=== PATIENT | female | born 1965 | race African-American/Black ===

== ENCOUNTER 2019-02-05 08:34 | Inpatient (IN) | payer OTHER ==
--- NOTE | 2019-02-05 09:03 | HP ---
<JonasLingcarmen - Last Filed: 02/05/19 09:02> CIWA Score - Admission Criteria OASAS Guidelines: Admission for Medically Managed Detox: Requires at least one of the followin. CIWA greater than 12 2. Seizures within the past 24 hours 3. Delirium tremens within the past 24 hours 4. Hallucinations within the past 24 hours 5. Acute intervention needed for co occurring medical disorder 6. Acute intervention needed for co occurring psychiatric disorder 7. Severe withdrawal that cannot be handled at a lower level of care (continued vomiting, continued diarrhea, abnormal vital signs) requiring intravenous medication and/or fluids 8. Admission ROS [facility] Allergies/Adverse Reactions: Allergies Allergy/AdvReac Type Severity Reaction Status Date / Time No Known Allergies Allergy Unverified 02/05/19 08:54 - Ebola screening Have you traveled outside of the country in the last 21 days: No Have you had contact with anyone from an Ebola affected area: No Do you have a fever: No Patient History - Patient Medical History Hx Anemia: No Hx Asthma: Yes Hx Chronic Obstructive Pulmonary Disease (COPD): No Hx Cancer: No Hx Cardiac Disorders: No Hx Congestive Heart Failure: No Hx Hypertension: No Hx Hypercholesterolemia: No Hx Pacemaker: No HX Cerebrovascular Accident: No Hx Seizures: No Hx Dementia: No Hx Diabetes: Yes Hx Gastrointestinal Disorders: No Hx Liver Disease: No Hx Genitourinary Disorders: No Hx Sexually Transmitted Disorders: No (syphillis) Hx Renal Disease (ESRD): No Hx Thyroid Disease: No Hx Human Immunodeficiency Virus (HIV): No Hx Hepatitis C: Yes Hx Depression: Yes Hx Suicide Attempt: No Hx Bipolar Disorder: No Hx Schizophrenia: No - Patient Surgical History Past Surgical History: Yes Hx Neurologic Surgery: No Hx Cataract Extraction: No Hx Cardiac Surgery: No Hx Lung Surgery: No Hx Breast Surgery: No Hx Breast Biopsy: No Hx Abdominal Surgery: No Hx Appendectomy: No Hx Cholecystectomy: No Hx Genitourinary Surgery: No Hx Section: Yes (x 1,32 years ago) Hx Orthopedic Surgery: No Anesthesia Reaction: No - PPD History Date: 12/14/11 - Reproductive History Last Menstrual Period: 07/05/12 - Smoking Cessation Smoking history: Current every day smoker Have you smoked in the past 12 months: Yes Aproximately how many cigarettes per day: 20 Hx Chewing Tobacco Use: No - Substances abused Alcohol Substance route: Oral Frequency: Daily Amount used: 40oz - 2can / 1 pt vodka Age of first use: 15 Date of last use: 02/05/19 Crack Substance route: Smoking Frequency: Daily Amount used: $50 Age of first use: 15 Date of last use: 02/05/19 Admission Physical Exam [facility] - Vital Signs Vital Signs: Vital Signs - 24 hr 02/05/19 08:41 Pulse Rate 59 L Respiratory 19 Rate Blood Pressure 149/91 <Yobani Gregorio - Last Filed: 02/05/19 10:12> CIWA Score Nausea/Vomitin Muscle Tremors: 1-None Visible, but Bailey Anxiety: 1-Mildly Anxious Agitation: 1-Slight > Activity Paroxysmal Sweats: 3 Orientation: 0-Oriented Tacttile Disturbances: 1-Very Mild Itch/Numbness Auditory Disturbances: 1-Very Mild Visual Disturbances: 1-Very Mild Sensitivity Headache: 2-Mild (appropriate for admission) CIWA-Ar Total Score: 13 - Admission Criteria OASAS Guidelines: Admission for Medically Managed Detox: Requires at least one of the followin. CIWA greater than 12 2. Seizures within the past 24 hours 3. Delirium tremens within the past 24 hours 4. Hallucinations within the past 24 hours 5. Acute intervention needed for co occurring medical disorder 6. Acute intervention needed for co occurring psychiatric disorder 7. Severe withdrawal that cannot be handled at a lower level of care (continued vomiting, continued diarrhea, abnormal vital signs) requiring intravenous medication and/or fluids 8. Admission ROS S - HPI Chief Complaint: " I want to come in for alcohol detox. I failed again" History of Present Illness: Patient is a 53 year old black female with history of alcohol dependence last admitted here in 07/08/12 for detox for alcohol. She is currently drinking 1 pint of vodka per day and 40 oz of beer, six pack per day, she last drank on Tuesday. She also admits to using crack at about $ 100 per day and last used on Tuesday. Family Hx is significant for alcoholism on both father and mother's side. She also has 2 brother that use substances and one has Diabetes and the other has history of lung cancer. She is a mother of 2 girls and 1 boy. She is domiciled. Psych Hx is sifnificant for depression on trazodone. Her PMHx: She has asthma and is on proventil only. Diabetes in history and HCV but untreated. She has no allergies Prior Surgical history is for C/sx1 and TL in 1190. She has no pending legal issues. Exam Limitations: No Limitations - Ebola screening Have you traveled outside of the country in the last 21 days: No Do you have a fever: No - Review of Systems Constitutional: Chills, Diaphoresis, Loss of Appetite Respiratory: reports: No Symptoms reported Cardiac: reports: No Symptoms Reported GI: reports: Abdominal Distended, Diarrhea, Nausea, Poor Appetite : reports: No Symptoms Reported Musculoskeletal: reports: Muscle Pain Integumentary: reports: Dryness Neuro: reports: Headache Endocrine: reports: No Symptoms Reported Hematology: reports: No Symptoms Reported Psychiatric: reports: No Sypmtoms Reported, Judgement Intact, Mood/Affect Appropiate, Orientated x3 Other Systems: Reviewed and Negative Patient History - Patient Medical History Hx Anemia: No Hx Asthma: Yes Hx Chronic Obstructive Pulmonary Disease (COPD): No Hx Cancer: No Hx Cardiac Disorders: No Hx Congestive Heart Failure: No Hx Hypertension: No Hx Hypercholesterolemia: No Hx Pacemaker: No HX Cerebrovascular Accident: No Hx Seizures: No Hx Dementia: No Hx Diabetes: Yes Hx Gastrointestinal Disorders: No Hx Liver Disease: No Hx Genitourinary Disorders: No Hx Sexually Transmitted Disorders: No Hx Renal Disease (ESRD): No Hx Thyroid Disease: No Hx Human Immunodeficiency Virus (HIV): No Hx Hepatitis C: Yes Hx Depression: Yes - PPD History Previous Implant?: Yes Documented Results: Negative w/o proof Implanted On Prior [facility] Admission?: Yes PPD to be Administered?: No - Reproductive History Patient is a Female of Child Bearing Age (11 -55 yrs old): No - Smoking Cessation Have you smoked in the past 12 months: Yes Hx Chewing Tobacco Use: No Initiated information on smoking cessation: Yes 'Breaking Loose' booklet given: 02/05/19 - Substance & Tx. History Hx Alcohol Use: Yes (1 pint per day and beers also) Hx Substance Use: Yes Substance Use Type: Cocaine - Substances abused Crack Substance route: Smoking Frequency: Daily Family Disease History - Family Disease History Family Disease History: Other: Father (alcoholic), Mother (alcoholic), Brother ( alcoholic and DM and one with Lung CA) Admission Physical Exam [facility] - Vital Signs Vital Signs: Vital Signs - 24 hr 02/05/19 02/05/19 08:41 09:18 Temperature 98.2 F 98.2 F Pulse Rate 59 L 59 L Respiratory 19 19 Rate Blood Pressure 149/91 149/91 - Physical General Appearance: Yes: No Apparent Distress, Disheveled, Mild Distress, Moderate Distress HEENTM: Yes: EOMI, Hearing grossly Normal, Normal ENT Inspection, Normocephalic , MARCELINO, Pharynx Normal Respiratory: Yes: Chest Non-Tender, Lungs Clear, Normal Breath Sounds, No Respiratory Distress, No Accessory Muscle Use Neck: Yes: No masses,lesions,Nodules, Trachea in good position Breast: Yes: Breast Exam Deferred Cardiology: Yes: Regular Rhythm, Regular Rate, S1, S2 Abdominal: Yes: Normal Bowel Sounds, Non Tender, Distended Genitourinary: Yes: Within Normal Limits Back: Yes: Normal Inspection Musculoskeletal: Yes: full range of Motion, Gait Steady Extremities: Yes: Normal Capillary Refill, Normal Inspection, Normal Range of Motion, Non-Tender Neurological: Yes: ham stripper II-XII NML intact, Fully Oriented, Alert, Motor Strength 5/5, Normal Mood/Affect, Normal Response Integumentary: Yes: Dry Lymphatic: Yes: Within Normal Limits Cleared for Admission S - Detox or Rehab [facility] Level of Care: Medically Managed Detox Regimen/Protocol: Librium Claeared for Rehab Admission: No Screened but not Admitted - Documentation of Visit Screened but not Admitted: No Breathalyzer - Breathalyzer Breathalyzer: 0 (patient last drank tuesday morning) Vital Signs - Vital Signs Vital signs refused: No Temperature: 98.2 F Temperature source: Oral Pulse Rate: 59 Respiratory Rate: 19 Blood Pressure: 149/91 BP Location: Right Arm Blood Pressure position: Sitting - Height Height: 4 ft 9 in - Weight Weight: 98 lb Weight measurement method: Standing scale - BMI Body Mass Index (BMI): 21.2 - Bowel Function Bowel Movement: Yes (diarrhea) Urine Drug Screen - Control Is test valid?: Yes - Results Drug screen NEGATIVE: No Urine drug screen results: THC-Marijuana, CELENA-Cocaine Inpatient Rehab Admission - Rehab Decision to Admit Inpatient rehab admission?: No
[2019-02-05 09:04] VITALS: BMI 21.2
[2019-02-05] MEDS ORDERED: BISMUTH SUBSALICYLATE 262 MG/15 ML BTL PO PRN (10:14)
[2019-02-05] MEDS ORDERED: IBUPROFEN 400 MG TABLET (FP) PO PRN (10:14)
[2019-02-05] MEDS ORDERED: MENTHOL/PHENOL 1 EACH UD MM PRN (10:14)
[2019-02-05] MEDS ORDERED: METHOCARBAMOL 500 MG TABLET PO PRN (10:14)
[2019-02-05] MEDS ORDERED: MELATONIN 5 MG TABLETS PO PRN (10:14)
[2019-02-05] MEDS ORDERED: MAGNESIUM CITRATE 300 ML BOTTLE PO PRN (10:14)
[2019-02-05] MEDS ORDERED: MAG HYDROX/AL HYDROX/SIMETH 30 ML UNIT-DOSE CUP PO PRN (10:14)
[2019-02-05] MEDS ORDERED: MAGNESIUM HYDROX 2400MG/30ML ORAL SUSPENSION 30 ML CUP PO PRN (10:14)
[2019-02-05] MEDS ORDERED: chlordiazePOXIDE HCL 10 MG CAPSULE PO PRN (10:14)
[2019-02-05] MEDS ORDERED: hydrOXYzine HCL 25 MG TABLET (FP) PO PRN (10:14)
[2019-02-05] MEDS ORDERED: ACETAMINOPHEN 325 MG TABLET (FP) PO PRN ×2 (10:14)
[2019-02-05] MEDS ORDERED: ALBUTEROL SO4 8 GM HFA INHALER IH PRN (10:18)
[2019-02-05] MEDS: chlordiazePOXIDE HCL 25 MG CAPSULE PO SCH ×2 (12:25→22:31)
--- NOTE | 2019-02-05 13:06 | CONSULT ---
[facility] Psychiatric Consult - Data Date of interview: 02/05/19 Admission source: [facility] Identifying data: Patient is a 53 year old single female, mother of three, unemployed, domiciled, and is supported by [facility]. This is patient's first admission to detox at [facility]. Patient admitted to for alcohol, cocaine, and marijuana dependence. Substance Abuse History: - Smoking Cessation. Smoking history: Current every day smoker. Have you smoked in the past 12 months: Yes. Aproximately how many cigarettes per day: 20. Hx Chewing Tobacco Use: No. - Substances abused. Alcohol. Substance route: Oral. Frequency: Daily. Amount used: 40oz - 2can / 1 pt vodka. Age of first use: 15. Date of last use: 02/05/19. Crack. Substance route: Smoking. Frequency: Daily. Amount used: $50. Age of first use: 15. Date of last use: 02/05/19 Medical History: Asthma, Hep C. Psychiatric History: Patient denies h/o psychiatric hospitalization, and suicide attempt. States she currently see's a psychiatrist at her senior residency and is prescribed trazdone 50mg HS. She denies h/o of accepting other psychotropic agents. Ms. Nicole denies h/o auditory/visual hallucinations. At present she reports stable mood but has a history of difficulty sleeping. Physical/Sexual Abuse/Trauma History: denies. Mental Status Exam - Mental Status Exam Alert and Oriented to: Time, Place, Person Cognitive Function: Good Patient Appearance: Well Groomed Mood: Euthymic Affect: Mood Congruent Patient Behavior: Cooperative Speech Pattern: Appropriate Voice Loudness: Normal Thought Process: Goal Oriented Thought Disorder: Not Present Hallucinations: Denies Suicidal Ideation: Denies Homicidal Ideation: Denies Insight/Judgement: Poor Sleep: Poorly Appetite: Fair Muscle strength/Tone: Normal Gait/Station: Normal Psychiatric Findings - Problem List ([place] 1, 2,3) (1) Marijuana dependence Current Visit: Yes Status: Acute (2) Alcohol dependence Current Visit: Yes Status: Acute (3) Cocaine dependence Current Visit: Yes Status: Acute (4) Substance-induced sleep disorder Current Visit: Yes Status: Acute - Initial Treatment Plan Initial Treatment Plan: Psychoeducation provided. Detoxification in progress. Will order Trazodone 50mg HS. Benefits and side effects discussed. Verbal consent given.
[2019-02-05 13:40] LABS: HEMATOCRIT 39.4 % (32.4-45.2); HEMOGLOBIN 13.4 GM/dL (10.7-15.3); MCH 32.4 pg (25.7-33.7); MCHC 34.1 g/dl (32.0-36.0); MEAN CELL VOLUME 95.1 fl (80-96); MEAN PLT VOLUME 7.3 fl (7.5-11.1); PLATELET COUNT 350 K/MM3 (134-434); RBC 4.15 M/mm3 (3.60-5.2); RDW 12.7 % (11.6-15.6); WHITE BLOOD COUNT 5.8 K/mm3 (4.0-10.0)
[2019-02-05 14:14] LABS: BILIRUBIN,TOTAL 0.8 mg/dL (0.2-1); BLOOD UREA NITROGEN 12.8 mg/dL (7-18); CALCIUM 9.5 mg/dL (8.5-10.1); CREATININE 0.9 mg/dL (0.55-1.3); POTASSIUM 4.3 mmol/L (3.5-5.1); TOT PROT 7.7 g/dl (6.4-8.2)
[2019-02-05] MEDS: THIAMINE HCL 100 MG TABLET (FP) PO SCH (22:31)
[2019-02-05] MEDS: traZODone HCL 50 MG TABLET (FP) PO SCH (22:31)
[2019-02-06] MEDS: chlordiazePOXIDE HCL 25 MG CAPSULE PO SCH ×3 (05:59→22:28)
[2019-02-06] MEDS: PRENATAL VITAMINS W/ FOLIC ACID TABLET (FP) PO SCH (10:23)
--- NOTE | 2019-02-06 15:33 | PN ---
S CIWA - CIWA Score Nausea/Vomitin-No Nausea/No Vomiting Muscle Tremors: 2 Anxiety: 3 Agitation: 1-Slight > Activity Paroxysmal Sweats: No Perspiration Orientation: 2-Disoriented Date<2 days Tacttile Disturbances: 0-None Auditory Disturbances: 2-Mild Harshness/Frighten Visual Disturbances: 0-None Headache: 3-Moderate CIWA-Ar Total Score: 13 S Progress Note (SOAP) Subjective: Anxious, Tremors, H/A. Objective: PATIENT A & O X 2 (UNCERTAIN ABOUT CURRENT DAY / DATE). PATIENT OBSERVED AMBULATING ON UNIT UNASSISTED. IN NO ACUTE DISTRESS. 02/06/19 15:36 Vital Signs Temperature 96.1 F L 02/06/19 13:11 Pulse Rate 82 02/06/19 13:11 Respiratory Rate 18 02/06/19 13:11 Blood Pressure 109/69 02/06/19 13:11 O2 Sat by Pulse Oximetry (%) Laboratory Tests 02/05/19 02/05/19 02/05/19 10:11 10:39 10:39 WBC 5.8 RBC 4.15 Hgb 13.4 Hct 39.4 MCV 95.1 MCH 32.4 MCHC 34.1 RDW 12.7 Plt Count 350 MPV 7.3 L Sodium Potassium Chloride Carbon Dioxide Anion Gap BUN Creatinine Est GFR (CKD-EPI)AfAm Est GFR (CKD-EPI)NonAf POC Glucometer 86 Random Glucose Calcium Total Bilirubin AST ALT Alkaline Phosphatase Total Protein Albumin RPR Titer HIV 1&2 Antibody Screen Negative HIV P24 Antigen Negative 02/05/19 02/05/19 02/05/19 10:39 10:39 16:33 WBC RBC Hgb Hct MCV MCH MCHC RDW Plt Count MPV Sodium 142 Potassium 4.3 Chloride 105 Carbon Dioxide 30 Anion Gap 7 L BUN 12.8 Creatinine 0.9 Est GFR (CKD-EPI)AfAm 83.43 Est GFR (CKD-EPI)NonAf 71.98 POC Glucometer 92 Random Glucose 149 H Calcium 9.5 Total Bilirubin 0.8 AST 20 ALT 21 Alkaline Phosphatase 77 Total Protein 7.7 Albumin 4.0 RPR Titer Nonreactive HIV 1&2 Antibody Screen HIV P24 Antigen 02/06/19 07:06 WBC RBC Hgb Hct MCV MCH MCHC RDW Plt Count MPV Sodium Potassium Chloride Carbon Dioxide Anion Gap BUN Creatinine Est GFR (CKD-EPI)AfAm Est GFR (CKD-EPI)NonAf POC Glucometer 128 Random Glucose Calcium Total Bilirubin AST ALT Alkaline Phosphatase Total Protein Albumin RPR Titer HIV 1&2 Antibody Screen HIV P24 Antigen LABS NOTED. RESULTS OF ADMISSION QFT /TB TEST PENDING. 02/06/19 15:37 Assessment: 02/06/19 15:36 WITHDRAWAL SYMPTOMS. Plan: CONTINUE DETOX. INCREASE DAILY PO WATER INTAKE.
[2019-02-06] MEDS: traZODone HCL 50 MG TABLET (FP) PO SCH (22:28)
[2019-02-06] MEDS: THIAMINE HCL 100 MG TABLET (FP) PO SCH (22:28)
[2019-02-07] MEDS: chlordiazePOXIDE 5 MG CAPSULE PO SCH ×2 (05:50→12:14)
[2019-02-07 09:29] VITALS: BP 117/60; PULSE 65; TEMP 97.9
--- NOTE | 2019-02-07 10:21 | PN ---
S CIWA - CIWA Score Nausea/Vomitin-Mild Nausea/No Vomiting Muscle Tremors: 2 Anxiety: 1-Mildly Anxious Agitation: 1-Slight > Activity Paroxysmal Sweats: 1-Minimal Palms Moist Orientation: 0-Oriented Tacttile Disturbances: 0-None Auditory Disturbances: 0-None Visual Disturbances: 0-None Headache: 1-Very Mild CIWA-Ar Total Score: 7 [facility] Progress Note (SOAP) Subjective: pt here for alcohol use disorder- has no complaints, wants to go home. O: Vital Signs - 24 hr 02/06/19 02/06/19 02/06/19 13:11 17:35 21:06 Temperature 96.1 F L 97.1 F L 97.1 F L Pulse Rate 82 54 L 65 Respiratory 18 18 18 Rate Blood Pressure 109/69 128/72 150/82 02/07/19 02/07/19 02/07/19 00:30 03:30 06:15 Temperature 97.8 F Pulse Rate 61 Respiratory 18 18 18 Rate Blood Pressure 127/71 02/07/19 09:29 Temperature 97.9 F Pulse Rate 65 Respiratory 18 Rate Blood Pressure 117/60 Laboratory Tests 02/05/19 02/05/19 02/05/19 10:11 10:39 10:39 WBC 5.8 RBC 4.15 Hgb 13.4 Hct 39.4 MCV 95.1 MCH 32.4 MCHC 34.1 RDW 12.7 Plt Count 350 MPV 7.3 L Sodium Potassium Chloride Carbon Dioxide Anion Gap BUN Creatinine Est GFR (CKD-EPI)AfAm Est GFR (CKD-EPI)NonAf POC Glucometer 86 Random Glucose Calcium Total Bilirubin AST ALT Alkaline Phosphatase Total Protein Albumin RPR Titer HIV 1&2 Antibody Screen Negative HIV P24 Antigen Negative 02/05/19 02/05/19 02/05/19 10:39 10:39 16:33 WBC RBC Hgb Hct MCV MCH MCHC RDW Plt Count MPV Sodium 142 Potassium 4.3 Chloride 105 Carbon Dioxide 30 Anion Gap 7 L BUN 12.8 Creatinine 0.9 Est GFR (CKD-EPI)AfAm 83.43 Est GFR (CKD-EPI)NonAf 71.98 POC Glucometer 92 Random Glucose 149 H Calcium 9.5 Total Bilirubin 0.8 AST 20 ALT 21 Alkaline Phosphatase 77 Total Protein 7.7 Albumin 4.0 RPR Titer Nonreactive HIV 1&2 Antibody Screen HIV P24 Antigen 02/06/19 02/06/19 02/07/19 07:06 17:33 05:46 WBC RBC Hgb Hct MCV MCH MCHC RDW Plt Count MPV Sodium Potassium Chloride Carbon Dioxide Anion Gap BUN Creatinine Est GFR (CKD-EPI)AfAm Est GFR (CKD-EPI)NonAf POC Glucometer 128 144 88 Random Glucose Calcium Total Bilirubin AST ALT Alkaline Phosphatase Total Protein Albumin RPR Titer HIV 1&2 Antibody Screen HIV P24 Antigen VS WNL labs WNL alert and oriented a/p: continue alcohol detox protocol Pt doing well
[2019-02-07] MEDS: PRENATAL VITAMINS W/ FOLIC ACID TABLET (FP) PO SCH (10:31)
--- NOTE | 2019-02-07 15:28 | DS ---
[facility] Detox Discharge Summary Admission Date: 02/05/19 Discharge Date: 02/07/19 - History Present History: Alcohol Dependence, Cannabis Dependence, Cocaine Dependence Pertinent Past History: Pt admitted for treatment of alcohol use disorder. Pt signed out on day #3 of treatment. No specific reason given. Pt did not want home meds renewed. To f/u PCP - Physical Exam Results Vital Signs: Vital Signs Temperature 97.9 F 02/07/19 09:29 Pulse Rate 65 02/07/19 09:29 Respiratory Rate 18 02/07/19 09:29 Blood Pressure 117/60 02/07/19 09:29 O2 Sat by Pulse Oximetry (%) - Medication Discharge Medications: Ambulatory Orders Albuterol Sulfate Inhaler - [Ventolin HFA Inhaler -] 2 inh IH Q4H PRN #0 inh 11/19 Metformin HCl [Metformin HCl ER] 500 mg PO BID #0 tab.er.24h 12/14/11 traZODone HCL [Trazodone HCl] 50 mg PO HS 02/05/19 - AMA Did Patient Leave Against Medical Advice: Yes
[2019-02-08] MEDS ORDERED: chlordiazePOXIDE HCL 10 MG CAPSULE PO PRN
[2019-02-08] MEDS ORDERED: chlordiazePOXIDE HCL 10 MG CAPSULE PO SCH (05:00)
[2019-02-09] MEDS ORDERED: chlordiazePOXIDE HCL 10 MG CAPSULE PO ONE (05:00)
== END 2019-02-07 15:24 | disposition left against medical advice (07) | DRG 894 ==
LOC: YASAS 08:34 → Y3N 10:11
PROVIDERS: ADMIT Surgery; ATTEND Surgery
PROC: HZ2ZZZZ Detoxification Services for Substance Abuse Treatment (ICD-10-PCS; principal; 2019-02-05)
DX: F10.230 Alcohol dependence with withdrawal, uncomplicated (principal); F14.20 Cocaine dependence, uncomplicated; F19.282 Other psychoactive substance dependence with psychoactive substance-induced sleep disorder; F12.20 Cannabis dependence, uncomplicated; F17.210 Nicotine dependence, cigarettes, uncomplicated; E11.9 Type 2 diabetes mellitus without complications; J45.909 Unspecified asthma, uncomplicated; Z87.42 Personal history of other diseases of the female genital tract; Z79.84 Long term (current) use of oral hypoglycemic drugs
CPT/HCPCS: 36415; 80053; 81025; 82962; 85027; 86480; 86593; 87389